=== PATIENT | female | born 1950 | race Caucasian/White ===

== ENCOUNTER 2020-11-09 09:58 | Emergency (ER) | payer OTHER ==
[~2020-11-09] VITALS: Ht 162.6 cm; Wt 63.0 kg
[2020-11-09 10:17] LABS: ABSOLUTE NEUTROPHILS 5.6 thou/uL (1.4-8.2); BASOPHILS 0.4 % (0.0-2.0); EOSINOPHILS 1.3 % (0.0-3.0); HEMATOCRIT 41.6 % (37.0-47.0); HEMOGLOBIN 13.8 gm/dL (12.0-15.0); LYMPHOCYTES 19.6 % (24.0-44.0); MCH 30.4 pg (26.0-34.0); MCHC 33.3 g/dL (28.0-37.0); MCV 91.2 fL (80.0-100.0); MONOCYTES 5.9 % (1.0-8.0); PLATELET COUNT 170 thou/uL (150-400); POLYS 72.8 % (36.0-66.0); RBC 4.56 mil/uL (4.20-5.00); RDW 13.3 % (10.5-14.5); WBC 7.7 thou/uL (4.0-11.0)
[2020-11-09 10:26] LABS: POTASSIUM 3.9 mmol/L (3.5-5.1)
[2020-11-09 10:31] LABS: ALBUMIN 4.1 g/dL (3.4-5.0); TOTAL BILIRUBIN 0.6 mg/dL (0.2-1.0); TOTAL PROTEIN 7.6 g/dL (6.4-8.2)
[2020-11-09 12:05] VITALS: BP 122/73
[2020-11-09] MEDS ORDERED: PREDNISONE 10 M10 MG PO (12:30)
[2020-11-09] MEDS ORDERED: EPIPEN 2-P0.3 MG/0.3 IM (12:30)
[2020-11-09] MEDS ORDERED: BENADRYL25 MG PO (12:30)
== END 2020-11-09 12:32 | disposition home or self-care (01) ==
LOC: ER 09:58
PROVIDERS: Emergency Medicine
DX: L50.9 Urticaria, unspecified (principal); Z88.0 Allergy status to penicillin; Z88.8 Allergy status to other drugs, medicaments and biological substances; Z88.1 Allergy status to other antibiotic agents

== ENCOUNTER 2021-02-09 10:16 | Emergency (ER) | payer OTHER ==
[~2021-02-09] VITALS: Ht 162.6 cm; Wt 63.5 kg
[~2021-02-09 10:16] MED LIST: BENADRYL25 MG PO; EPIPEN 2-P0.3 MG/0.3 IM; PREDNISONE 10 M10 MG PO
[2021-02-09 12:24] LABS: HEMATOCRIT 37.9 % (37.0-47.0); MCH 31.3 pg (26.0-34.0); MCHC 34.3 g/dL (28.0-37.0); MCV 91.1 fL (80.0-100.0); RBC 4.16 mil/uL (4.20-5.00); RDW 12.7 % (10.5-14.5); WBC 13.8 thou/uL (4.0-11.0)
[2021-02-09 12:31] LABS: CALCIUM 9.5 mg/dL (8.5-10.1); POTASSIUM 4.1 mmol/L (3.5-5.1)
[2021-02-09 12:37] LABS: ALBUMIN 3.8 g/dL (3.4-5.0); TOTAL BILIRUBIN 0.3 mg/dL (0.2-1.0); TOTAL PROTEIN 7.6 g/dL (6.4-8.2)
[2021-02-09] MEDS ORDERED: CEPHALEXIN500 MG PO (12:49)
[2021-02-09 13:41] VITALS: BP 141/74
== END 2021-02-09 13:40 | disposition home or self-care (01) ==
LOC: ER 10:16
PROVIDERS: Nurse Practitioner Family
DX: L03.211 Cellulitis of face (principal); Z20.822 Contact with and (suspected) exposure to COVID-19; Z79.899 Other long term (current) drug therapy; Z88.6 Allergy status to analgesic agent; Z88.1 Allergy status to other antibiotic agents; Z88.5 Allergy status to narcotic agent; Z88.0 Allergy status to penicillin; Z88.2 Allergy status to sulfonamides; Z88.8 Allergy status to other drugs, medicaments and biological substances